=== PATIENT | female | born 1950 | race Caucasian/White ===

== ENCOUNTER → 2017-04-16 | Outpatient (CLI) | payer OTHER ==
[~2017-04-16] MED LIST: ALDACTONE PO; AMARYL PO; CAL PO; CALCIUM 500 + D1 TAB PO; CALCIUM1 TAB.CHEW PO; CALCIUM500 MG PO; CERTAGEN PO; CLINDAMYCIN HC300 MG PO; CORGARD PO; DIOVAN HCT 160-1 TAB PO; FISH OIL SOFTGE1 CA1 PO; GLIMEPIRIDE1 M1 PO; GLUCOTROL PO; IRON325 ( 651 PO; KCL; LACTULOSE20 GM/30 M PO; LANTUS100 U/ML INJ; LANTUS100 U/ML SUBQ; LASIX20 MG PO; METFORMIN HCL500 M1 PO; MULTIVITAMIN PO; NEXIUM PO; PRILOSEC PO; REQUIP1 MG PO; REQUIP2 MG PO; ROPINIROLE HCL2 MG PO; SERTRALINE HCL100 M1 PO; TRULICITY1.5 MG/0.5 SQ; TRULICITY1.5 MG/0.5 SUBQ; TYLENOL #3 PO; ZOCOR PO; ZOLOFT PO
--- NOTE | ~2017-04-16 | MY11 ---
[facility] A Service of [facility] & [facility] RADIOLOGY TEXT RESULTS PATIENT: QUIQUE LOWE LOCATION: [facility] : 51 UNIT #: [id number] AGE: [address]: Mayte Butterfield APRN SEX: F ORDER DR: [id number] [facility] [address] [place], [place] [address] [id number] O MR#: [id number] Acc #: [id number] NAME: QUIQUE LOWE. : 1950 SEX: F STUDY DATE/TIME: 04/16/2017 10:29 UNIT: [facility] ROOM: STUDY DESCRIPTION: MY Mammogram Screening Dig Stevie Attending Physician: Mayte Butterfield A.P.R.N. Referring Physician: Mayte Butterfield A.P.R.N. Ordering Physician: Mayte Butterfield A.P.R.N. Primary Care Physician: Mayte Butterfield A.P.R.N. MEDICAL IMAGING REPORT This report is preliminary unless electronic signature is present EXAM 1. Bilateral digital screening with CAD normal. 2. Bilateral breast tomosynthesis. HISTORY Routine screening. No current complaints. Family breast cancer in mother. COMPARISON STUDIES 04/13/2016 and 03/23/2015. FINDINGS MLO and CC digital views of each breast were obtained. The exam was reviewed FDA-approved CAD device. The breasts are almost entirely fatty replaced. There are no masses or abnormal calcifications. IMPRESSION No change and no evidence of malignancy. Patients over the age of 40 are entered into a reminder system with target due date for the next mammogram. A result letter will also be sent to the patient. BIRADS: 1 Negative Dictated by... Jhon Sheffield M.D. THIS IS AN ELECTRONICALLY VERIFIED REPORT [facility] A Service of [facility] & [facility] RADIOLOGY TEXT RESULTS PATIENT: QUIQUE LOWE LOCATION: [facility] : 51 UNIT #: [id number] AGE: [address]: Mayte Butterfield APRN SEX: F ORDER DR: Jhon Sheffield M.D. at 04/16/2017 1:22 PM Gm TD: 04/16/2017 13:00 JOB #: [id number] MEDICAL IMAGING REPORT Page 1 of 1 COPY
== END | disposition home or self-care (01) ==
LOC: CWCC 09:45
DX: Z12.31 Encounter for screening mammogram for malignant neoplasm of breast (principal); Z80.3 Family history of malignant neoplasm of breast
CPT/HCPCS: G0202

== ENCOUNTER → 2017-05-03 | Outpatient (CLI) | payer OTHER ==
--- NOTE | ~2017-05-03 | US6 ---
[facility] A Service of [facility] RADIOLOGY TEXT RESULTS PATIENT: QUIQUE LOWE LOCATION: [facility] : 51 UNIT #: [id number] AGE: [address]: Juanito Salas MD SEX: F ORDER DR: [id number] [facility] [address] [place], [place] [address] [id number] O MR#: [id number] Acc #: [id number] NAME: QUIQUE LOWE. : 1950 SEX: F STUDY DATE/TIME: 05/03/2017 8:52 UNIT: [facility] ROOM: STUDY DESCRIPTION: US Abdominal Limited Attending Physician: Juanito Salas M.D. Referring Physician: Juanito Salas M.D. Ordering Physician: Juanito Salas M.D. Primary Care Physician: Mayte Butterfield A.P.R.N. MEDICAL IMAGING REPORT This report is preliminary unless electronic signature is present EXAM Right upper quadrant abdominal ultrasound INDICATION Elevated liver enzyme levels at last physician visit. Anemia. PROCEDURE Lundberg-scale and Doppler imaging right upper quadrant of the abdomen. COMPARISON None. FINDINGS Visualized portions of the pancreas are unremarkable. Common duct measures 5 mm. Liver shows increased echotexture. No discrete liver mass seen on submitted images. Liver measures 14.9 cm. Right kidney measures 12.5 cm. No hydronephrosis. Previous cholecystectomy. IMPRESSION 1. Previous cholecystectomy. Common duct within normal limits. 2. Increased liver echotexture suggesting steatosis. Dictated by... Benedict Michael M.D. THIS IS AN ELECTRONICALLY VERIFIED REPORT Benedict Michael M.D. at 05/07/2017 7:10 AM RADHA/kae TD: 05/03/2017 10:24 JOB #: [id number] [facility] A Service of [facility] RADIOLOGY TEXT RESULTS PATIENT: QUIQUE LOWE LOCATION: [facility] : 51 UNIT #: [id number] AGE: [address]: Juanito Salas MD SEX: F ORDER DR: MEDICAL IMAGING REPORT Page 1 of 1 COPY
--- NOTE | ~2017-05-03 | NM19 ---
[facility] A Service of [facility] & [facility] RADIOLOGY TEXT RESULTS PATIENT: QUIQUE LOWE LOCATION: [place] : 51 UNIT #: [id number] AGE: [address]: Juanito Salas MD SEX: F ORDER DR: [id number] [facility] [address] [place], [place] [address] [id number] O MR#: [id number] Acc #: [id number] NAME: QUIQUE LOWE. : 1950 SEX: F STUDY DATE/TIME: 05/03/2017 9:41 UNIT: [facility] ROOM: STUDY DESCRIPTION: DE Gastric Emptying Study Attending Physician: Juanito Salas M.D. Referring Physician: Juanito Salas M.D. Ordering Physician: Juanito Salas M.D. Primary Care Physician: Mayte Butterfield A.P.R.N. MEDICAL IMAGING REPORT This report is preliminary unless electronic signature is present EXAM Radionuclide gastric emptying scan, 05/03/2017. HISTORY Dysphagia. Excessive bleeding from rectum. Vomiting, extra gassy, weight loss. Fall very easy, acid reflux. Duration 1 year, bleeding started December 04. Prior cholecystectomy 20 years ago. Diabetes. TECHNIQUE Following ingestion of 560 mcCi technetium 99m sulfur colloid admixed in scrambled eggs, anterior and posterior views of the abdomen obtained at 0, 60, 120, 240 minutes post ingestion. Region of interest drawn around stomach and time-activity curve constructed. Percent remaining at time intervals as follows: 60 minutes - 89%, 120 minutes - 87%, 240 minutes - 64% remaining. Percent empty at time intervals as follows: 60 minutes - 11%, 120 minutes - 13%, 240 minutes - 36%. IMPRESSION 1. Two hour solid phase gastric emptying is 13%. Normal is greater than 60%. Four hour solid phase gastric emptying is 36%. Normal is greater than 90%. Dictated by... Andres Wagoner M.D. THIS IS AN ELECTRONICALLY VERIFIED REPORT Andres Wagoner M.D. at 05/08/2017 10:14 AM ELGIN/lucien TD: 05/03/2017 19:10 JOB #: [id number] [facility] A Service of [facility] RADIOLOGY TEXT RESULTS PATIENT: QUIQUE LOWE LOCATION: [facility] : 51 UNIT #: [id number] AGE: [address]: Juanito Salas MD SEX: F ORDER DR: MEDICAL IMAGING REPORT Page 1 of 1 COPY
== END | disposition home or self-care (01) ==
LOC: CGUS 08:32
DX: K75.81 Nonalcoholic steatohepatitis (NASH) (principal); K30 Functional dyspepsia; K64.8 Other hemorrhoids; Z90.49 Acquired absence of other specified parts of digestive tract
CPT/HCPCS: 76705; 78264; 82947; A9541

== ENCOUNTER 2017-05-11 12:07 | Inpatient (IN) | payer OTHER ==
--- NOTE | ~2017-05-11 | HP ---
Unit #: [id number] #: [id number] Patient: QUIQUE LOWE [id number] [facility] [place], [place] [address] [id number] I MR#: [id number] NAME: QUIQUE LOWE. ROOM: 69376 Age: 67 Sex: F Admission Date: 05/11/2017 : 1950 Attending Physician: Delma Bell M.D. Primary Care Physician: Mayte Butterfield A.P.R.N. HISTORY AND PHYSICAL CHIEF COMPLAINT Altered mental status, hyperglycemia. HISTORY OF PRESENT ILLNESS The patient is a 67-year-old female with past medical history of diabetes, cirrhosis, hypertension, depression and restless leg syndrome who presented to the emergency department for evaluation of the above. History is obtained from chart review and discussion with the ER staff due to the patient's altered mental status. The patient has apparently had 2-3 days of confusion and weakness. She collapsed today. She was brought to the emergency department for further evaluation. In the emergency department initial temperature was 100, pulse 114, respirations 28, blood pressure 136/77. Oxygen saturation was 100% on 100% non-rebreather. The patient was restless, oriented to person only, not following commands but moving all extremities. She was ultimately intubated. A CT of the abdomen and pelvis was done and showed enlarged appendix that was unchanged compared to prior. Chest x-ray showed vascular congestion versus infiltrate. Lactic acid is 4.3. Ammonia level is 65. She was given 30 mL/kg of normal saline, as well as vancomycin and Rocephin, in the emergency department. She was also given 7 units of regular insulin and started on a propofol drip. She is being admitted to [facility] for evaluation and further treatment. PAST MEDICAL HISTORY 1. Admission to [facility] August 22 through August 24, 2015 for rectal bleeding. 2. Diabetes. 3. Cirrhosis secondary to nonalcoholic steatohepatitis, followed by Dr. Salas. 4. Hypertension. 5. Depression. 6. Restless leg syndrome. 7. Echocardiogram March 18, 2012 showed an ejection fraction of 60% with mild septal hypokinesis, mild concentric left ventricular hypertrophy. PAST SURGICAL HISTORY 1. Cholecystectomy. 2. Right ovarian surgery for benign tumor. 3. Bladder repair. 4. Carpal tunnel. 5. Hysterectomy. SOCIAL HISTORY Unit #: [id number] #: [id number] Patient: QUIQUE LOWE There is no tobacco or alcohol use per record review. FAMILY HISTORY Unobtainable. ALLERGIES Penicillin. HOME MEDICATIONS Home medications include insulin. Home medications will need to be reviewed and verified. REVIEW OF SYSTEMS Unobtainable due to altered mental status. PHYSICAL EXAMINATION VITAL SIGNS: Temperature is 100, pulse 114, respirations 28, blood pressure 136/77, oxygen saturation 100% on room air. GENERAL: The patient is a female who is currently sedated and intubated. HEENT: The head is atraumatic. Mucous membranes are moist. NECK: Supple. Trachea is midline. CARDIOVASCULAR: Regular rate and rhythm. RESPIRATORY: Lungs are relatively clear to auscultation bilaterally with no increased work of breathing. ABDOMEN: Soft, nontender with bowel sounds present in all 4 quadrants. EXTREMITIES: Extremities are nontender with no pedal edema. NEUROLOGIC: The patient is currently sedated. She was apparently oriented to person only and moving all extremities but not following commands on arrival per my discussion with ER staff. PSYCHIATRIC: Unable to assess. SKIN: Skin of examined areas is warm and dry. DIAGNOSTIC TESTS IMAGING: CT of the head is pending. CT of the abdomen and pelvis shows enlarged appendix, unchanged when compared to prior CT in August 22, 2015. Cirrhotic changes are noted. Minimal ascites is also noted. Chest x-ray shows vascular congestion versus infiltrate. The patient had an abdominal ultrasound May 03, 2017 that showed increased liver echotexture suggesting steatosis. She also had a gastric emptying study on May 03, 2017 that showed 2 hours solid gastric emptying 13%, four hours 36%. LABORATORY: Arterial blood gases show pH of 7.418, pCO2 of 34.1, pO2 of 121 on 2 liters. Troponin is less than 0.05. INR is 1.2. lactic acid 4.3. Ammonia 65. Urinalysis - Greater than 1,000 glucose. Comprehensive metabolic panel notable for sodium of 133, glucose 612, AST 48, alkaline phosphatase 190. Amylase and lipase are 22 and 67 respectively. CPK 62. Complete blood count notable for hemoglobin and hematocrit of 10.1 and 32.3 respectively. Platelets are 79. ASSESSMENT 1. The patient is a 67-year-old female with altered mental status. Unit #: [id number] #: [id number] Patient: QUIQUE LOWE 2. Hepatic encephalopathy with an initial ammonia level of 65. 3. Sepsis with initial lactic acid of 4.3. 4. Possible aspiration pneumonia. The patient received vancomycin and Rocephin in the emergency department. 5. Hyperosmolar hyperglycemia. The patient received 30 mL/kg of normal saline in the emergency department, as well as 7 units of regular insulin. 6. Normocytic anemia. The patient's hemoglobin was 9.2 on August 24, 2015; it is 10.1 today. 7. Thrombocytopenia. The patient's platelet count has been as low as 112 on August 24, 2015. It is 79 today. 8. Cirrhosis secondary to nonalcoholic steatohepatitis, followed by Dr. Salas. 9. Hypertension. 10. Depression. 11. Restless leg syndrome. PLAN 1. Admit to ICU. 2. NPO. 3. Normal saline at 150 mL an hour. 4. TSH, B12 and folate. 5. Follow up results of head CT. 6. Sepsis protocol with repeat lactic acid. 7. Blood cultures x2. 8. Status post culture and sensitivity. 9. Procalcitonin level. 10. Vancomycin, tobramycin, Levaquin, aztreonam IV pending further workup. 11. Insulin drip per non-DKA protocol to start now. 12. Hemoglobin A1C. 13. Protonix for GI prophylaxis since the patient will be in ICU. 14. SCDs for DVT prophylaxis. 15. Repeat labs in the morning, including ammonia, amylase and lipase. 16. Consult Dr. nKowles regarding hepatic encephalopathy and cirrhosis. NOTE: Thirty minutes critical care time spent in the care of this patient (3:15 to 3:45 p.m.). Dictated by John Bradley/mikhail TD: 05/11/2017 16:10 JOB #: [id number] Unit #: [id number] #: [id number] Patient: QUIQUE LOWE HISTORY AND PHYSICAL Page 1 of 1 X Delma Bell MD X HISTORY AND PHYSICAL
--- NOTE | ~2017-05-11 | EKG ---
PATIENT: QUIQUE LOWE UNIT #: [id number] Ventricular Rate: 82 BPM Atrial Rate: 82 BPM P-R Interval: 132 ms QRS Duration: 88 ms Q-T Interval: 412 ms QTC Calculation(Bezet): 481 ms P [place]: 71 degrees Calculated R [place]: -18 degrees Calculated T [place]: 60 degrees Diagnosis Line: Normal sinus rhythm Diagnosis Line: Normal ECG Diagnosis Line: When compared with ECG of 12-MAY-2017 14:37, Diagnosis Line: ST no longer depressed in Inferior leads Diagnosis Line: T wave inversion no longer evident in Inferior Diagnosis Line: leads Diagnosis Line: Confirmed by MADELAINE CUMMINS MD ([id number]) on 05/14/2017 Diagnosis Line: 5:39:13 AM INTERPRETING MD: MARIA G DE LA GARZA
--- NOTE | ~2017-05-11 | CT71 ---
[facility] A Service of [facility] RADIOLOGY TEXT RESULTS PATIENT: QUIQUE LOWE LOCATION: [address] : [birth year] UNIT #: [id number] AGE: [address]: Pratik Hart MD SEX: F ORDER DR: [id number] [facility] [address]. [place], [place] [address] [id number] I MR#: [id number] Acc #: [id number] NAME: QUIQUE LOWE. : 1950 SEX: F STUDY DATE/TIME: 05/11/2017 12:57 UNIT: [facility] ROOM: [facility] STUDY DESCRIPTION: CT Head Wo Contrast Attending Physician: Delma Bell M.D. Ordering Physician: Max Angeles M.D. Primary Care Physician: Mayte Butterfield A.P.R.N. MEDICAL IMAGING REPORT This report is preliminary unless electronic signature is present EXAM CT of the head without contrast; 05/11/2017. HISTORY 67-year-old female with seizure and altered mental status today. Collapsed at home today. COMPARISON CT head, 10/05/2011. TECHNIQUE Routine unenhanced axial images performed through the brain. This CT exam was performed with one or more of the following radiation dose reduction techniques: automatic exposure control, adjustment of mA and/or kV according to patient size, and iterative reconstruction. FINDINGS No hemorrhage, acute infarction, mass lesion, or abnormal extraaxial fluid collection. No midline shift or focal mass effect. Ventricular system is normal in size and configuration. No acute bony abnormality. Mucosal thickening bilateral maxillary sinuses. Visualized mastoid air cells are clear. Incidental note of benign dystrophic calcifications in the right basal ganglia and bilateral cerebellar hemispheres. IMPRESSION No acute intracranial abnormality. Mucosal thickening bilateral maxillary sinuses. Dictated by... Bry Loo M.D. THIS IS AN ELECTRONICALLY VERIFIED REPORT [facility] A Service [facility] RADIOLOGY TEXT RESULTS PATIENT: QUIQUE LOWE LOCATION: [address] : [birth year] UNIT #: [id number] AGE: [address]: Pratik Hart MD SEX: F ORDER DR: Bry Loo M.D. at 05/12/2017 6:12 PM NIK/lucien TD: 05/11/2017 18:43 JOB #: [id number] MEDICAL IMAGING REPORT Page 1 of 1 COPY
--- NOTE | ~2017-05-11 | CO ---
Unit #: [id number] #: [id number] Patient: QUIQUE LOWE [id number] [address] [place], [place] [address] [id number] I MR#: [id number] NAME: QUIQUE LOWE. ROOM: [facility] Age: 67 Sex: F Admission Date: 05/11/2017 : 1950 Attending Physician: Pratik Hart M.D. Primary Care Physician: Mayte Butterfield A.P.R.N. Consultation Date: 05/12/2017 CONSULTATION REPORT REASON FOR CONSULTATION Hepatic encephalopathy. HISTORY OF PRESENTING ILLNESS Ms. Lowe is a 67-year-old lady, presently in respiratory failure, and on a ventilator, unable to give any history. History was obtained from chart, review as well as talking to her . He was on the bedside. The patient has been having confusion going on started about a week ago, got worsen, and yesterday she blacked out and brought her to the hospital. Here she has not had any similar problems in the past. She was recently told she may have liver cirrhosis however did not really have a warned diagnosis in the past. She has seen Dr. Salas for that. She also has had multiple scopes in different places apparently for bleeding and was told that she has hemorrhoids and had banding of hemorrhoids several times in the past. SOCIAL HISTORY No alcohol. She has never been diagnosed with hepatitis. PAST MEDICAL HISTORY Significant for diabetes mellitus, obesity, and depression. She is status post cholecystectomy and hysterectomy. SOCIAL HISTORY Nonsmoker and nonalcoholic. FAMILY HISTORY Cannot be obtained. ALLERGIES Penicillin. REVIEW OF SYSTEMS Unable to obtain. MEDICATIONS Currently include vancomycin, Azactam, Nebcin, Novolin, and Levophed. PHYSICAL EXAMINATION GENERAL: Intubated, non-responsive. Unit #: [id number] #: [id number] Patient: QUIQUE LOWE HEENT: Pupils are reactive. Sclerae anicteric. Oral mucosa moist. NECK: No JVD. No lymphadenopathy. CHEST: Few scattered rhonchi. CARDIOVASCULAR: Regular rate rhythm. No murmurs. ABDOMEN: Soft. No clear shifting dullness or organomegaly. EXTREMITIES: Without clubbing, cyanosis, or edema. NEUROLOGIC: Deferred. SKIN: Warm and dry. LABORATORY DATA Ammonia level on arrival was 65. Lactic acid was 4.5. Amylase and lipase are normal. Renal function was normal. Coags are normal. CBC shows hemoglobin of 9.9, white count of 13.3, and platelet count of 93. DIAGNOSTIC STUDIES CT scan findings are consistent with cirrhosis. Head CT was normal. ASSESSMENT AND PLAN 1. The patient with unconsciousness, mental status changes, elevated ammonia level, started most likely as hepatic encephalopathy and is currently being treated for sepsis also. I will her put in an NG tube and started with lactulose through that. We will continue with supportive care and antibiotics. Further recommendations to follow. 2. Sepsis on multiple strong antibiotics. 3. WALL related liver disease. 4. Diabetes mellitus. Thank you Dr. Bell for this interesting consult. We will follow along. Dictated by... Dilan Knowles M.D. XIN/sari TD: 05/12/2017 11:57 JOB #: [id number] CONSULTATION REPORT Page 1 of 1 X Dilan Knowles MD CONSULTATION REPORT
--- NOTE | ~2017-05-11 | CR72 ---
[facility] A Service of [facility] & [facility] RADIOLOGY TEXT RESULTS PATIENT: QUIQUE LOWE LOCATION: [address] : [birth year] UNIT #: [id number] AGE: [address]: Delma Bell MD SEX: F ORDER DR: [id number] [facility] [address] [place], [place] [address] [id number] I MR#: [id number] Acc #: [id number] NAME: QUIQUE LOWE. : 1950 SEX: F STUDY DATE/TIME: 05/11/2017 14:11 UNIT: [facility] ROOM: 94798 STUDY DESCRIPTION: CR Chest Single View Portable Attending Physician: Delma Bell M.D. Ordering Physician: Max Angeles M.D. Primary Care Physician: Mayte Butterfield A.P.R.N. MEDICAL IMAGING REPORT This report is preliminary unless electronic signature is present EXAM Portable chest, 05/11/2017 HISTORY Respiratory failure. Intubated today. FINDINGS The cardiac and mediastinal structures are stable compared with earlier today at 12:43 p.m. Endotracheal tube has been inserted with the tip approximately 4.0 cm above the adriana. Poor inspiratory result with minimal atelectasis or infiltrate left lower lobe medially. Lungs are otherwise clear. Pulmonary vascular congestion has resolved. There are no pleural effusions. Dictated by... Jourdan Fuchs M.D. THIS IS AN ELECTRONICALLY VERIFIED REPORT Jourdan Fuchs M.D. at 05/12/2017 6:29 AM VIRA/mark TD: 05/11/2017 16:34 JOB #: [id number] MEDICAL IMAGING REPORT Page 1 of 1 COPY
--- NOTE | ~2017-05-11 | CT4 ---
[facility] A Service of [facility] RADIOLOGY TEXT RESULTS PATIENT: QUIQUE LOWE LOCATION: [facility]3-17 : 52 UNIT #: [id number] AGE: [address]: Delma Bell MD SEX: F ORDER DR: [id number] [facility] [address] [place], [place] [address] [id number] E MR#: [id number] Acc #: [id number] NAME: QUIQUE LOWE. : 1950 SEX: F STUDY DATE/TIME: 05/11/2017 13:09 UNIT: TIM ROOM: STUDY DESCRIPTION: CT Abd and Pelv Wo Cont Attending Physician: Max Angeles M.D. Ordering Physician: Max Angeles M.D. Primary Care Physician: Mayte Butterfield A.P.R.N. MEDICAL IMAGING REPORT This report is preliminary unless electronic signature is present EXAM CT scan of the abdomen and pelvis without contrast, 05/11/2017 HISTORY Abdomen pain on physical examination today status post seizure with altered mental status. Patient collapsed at home today. Hypertension and diabetes. Abnormally elevated liver enzymes. TECHNIQUE Spiral CT was performed through the abdomen and pelvis without oral or intravenous contrast administration as per clinician request. This CT exam was performed with one or more of the following radiation dose reduction techniques: automatic exposure control, adjustment of mA and/or kV according to patient size, and iterative reconstruction. FINDINGS The exam is limited by the lack of oral and intravenous contrast. Liver demonstrates surface nodularity and prominence of the caudate lobe characteristic of cirrhosis. Recanalization of the umbilical vein is noted as well as periesophageal varices. There is a small amount of ascites in the upper abdomen. The spleen is enlarged measuring 13.7 cm in greatest diameter. The pancreas is normal. The gallbladder is surgically absent. The adrenal glands and kidneys are normal. PELVIS: The gut, mesenteric and dequan structures are normal. There is no free fluid in the abdomen or pelvis. The appendix is enlarged measuring 1.3 cm in diameter but this was present on the previous examination dated 08/22/2015. No inflammatory changes are seen surrounding the appendix. Correlate clinically for possible appendicitis. Findings called to the ordering clinician at 01:45 p.m. on 05/11/2017. Images of the lung bases demonstrate bibasilar atelectasis. [facility] A Service of [facility] RADIOLOGY TEXT RESULTS PATIENT: QUIQUE LOWE LOCATION: [address]17 : [birth year] UNIT #: [id number] AGE: [address]: Delma Bell MD SEX: F ORDER DR: IMPRESSION 1. The examination is limited by the lack of oral and intravenous contrast. The exam is also limited by patient motion with resulting artifact. 2. Diffuse enlargement of the appendix measuring 1.3 cm in diameter. This is not significantly changed compared with previous examination dated 08/22/2015. No inflammatory changes are seen surrounding the appendix. Correlate clinically to exclude appendicitis. 3. Hepatic cirrhosis. Recanalization of the umbilical vein. 4. Splenomegaly. 5. Minimal ascites in the upper abdomen. STAT * RESULT Dictated by... Jourdan Fuchs M.D. THIS IS AN ELECTRONICALLY VERIFIED REPORT Jourdan Fuchs M.D. at 05/12/2017 6:23 AM VIRA/mark TD: 05/11/2017 13:47 JOB #: [id number] MEDICAL IMAGING REPORT Page 1 of 1 COPY
--- NOTE | ~2017-05-11 | CO ---
Unit #: [id number] #: [id number] Patient: QUIQUE LOWE [id number] [address] [place], [place] [address] [id number] I MR#: [id number] NAME: QUIQUE LOWE. ROOM: [facility] Age: 67 Sex: F Admission Date: 05/11/2017 : 1950 Attending Physician: Pratik Hart M.D. Primary Care Physician: Mayte Butterfield A.P.R.N. Consultation Date: 05/11/2017 CONSULTATION REPORT REASON FOR CONSULTATION Respiratory failure. CHIEF COMPLAINT AND HISTORY OF PRESENT ILLNESS A 67-year-old female with past medical history of diabetes, cirrhosis, hypertension, depression, restless leg syndrome. Presented with the complaint of altered mental status. Was found to have elevated blood sugar. The patient had confusion and weakness 2-3 days ago, collapsed. She was restless, oriented to person only and was intubated. CT of the abdomen and pelvis showed enlarged appendix. I am seeing her at the bedside, currently intubated, sedated. REVIEW OF SYSTEMS Unobtainable. PAST MEDICAL HISTORY Diabetes, cirrhosis, hypertension, depression, restless leg syndrome. SURGICAL HISTORY Cholecystectomy, right ovarian surgery, bladder repair, carpal tunnel syndrome, hysterectomy. SOCIAL HISTORY Nonsmoker, no alcohol, no drug abuse. ALLERGIES Penicillin. HOME MEDICATIONS Insulin. Rest of the home medications reviewed. PHYSICAL EXAMINATION VITAL SIGNS: Temperature 98, pulse 100, respirations 16, blood pressure 120/70. NEUROLOGIC: Sedated, intubated. CVS: S1, S2. RESPIRATORY: Bilateral air entry. Bilateral mild rhonchi. GI: Nontender. Soft. Bowel sounds positive. EXTREMITIES: No edema. SKIN: No rashes, no ulcer. LYMPHATIC: No lymphadenopathy. DIAGNOSTIC STUDIES Labs and imaging have been reviewed. Unit #: [id number] #: [id number] Patient: QUIQUE LOWE ASSESSMENT 1. Acute hypoxic respiratory failure. 2. Altered mental status. 3. Hepatic encephalopathy. 4. Elevated ammonia level. 5. Sepsis, present on admission. 6. Possible aspiration. 7. Hyperosmolar hyperglycemia. 8. Normocytic anemia. 9. Cirrhosis. 10. Hypertension. 11. Critically ill patient. PLAN Plan is to continue ventilator support. Continue IV antibiotics and IV fluids. GI and DVT prophylaxis. Consult gastroenterology. Continue non-DKA protocol insulin drip. Patient will be closely monitored. Please see orders for detailed plan. Thank you very much for this consultation. Dictated by... John Clarke/mikhail TD: 05/12/2017 13:13 JOB #: [id number] CONSULTATION REPORT Page 1 of 1 X Casey Cortes MD X CONSULTATION REPORT
--- NOTE | ~2017-05-11 | CR7 ---
[facility] A Service of [facility] & [facility] RADIOLOGY TEXT RESULTS PATIENT: QUIQUE LOWE LOCATION: [address] : [birth year] UNIT #: [id number] AGE: [address]: Pratik Hart MD SEX: F ORDER DR: [id number] [facility] [address] [place], [place] [address] [id number] I MR#: [id number] Acc #: [id number] NAME: QUIQUE LOWE. : 1950 SEX: F STUDY DATE/TIME: 05/12/2017 9:45 UNIT: [facility] ROOM: [facility] STUDY DESCRIPTION: CR Abdomen Single AP View Attending Physician: Pratik Hart M.D. Ordering Physician: Pratik Hart M.D. Primary Care Physician: Mayte Butterfield A.P.R.N. MEDICAL IMAGING REPORT This report is preliminary unless electronic signature is present EXAM Portable abdomen, 05/12/2017 HISTORY Post invasive procedure. Nasogastric tube placement today. Respiratory failure and feeding difficulty. FINDINGS The tip of the nasogastric tube is in the region of the distal stomach. Dictated by... Jourdan Fuchs M.D. THIS IS AN ELECTRONICALLY VERIFIED REPORT Jourdan Fuchs M.D. at 05/13/2017 8:06 AM VIRA/mark TD: 05/12/2017 10:28 JOB #: [id number] MEDICAL IMAGING REPORT Page 1 of 1 COPY
--- NOTE | ~2017-05-11 | CR72 ---
[facility] A Service of [facility] RADIOLOGY TEXT RESULTS PATIENT: QUIQUE LOWE LOCATION: [place] [id number] : [birth year] UNIT #: [id number] AGE: [address]: Pratik Hart MD SEX: F ORDER DR: [id number] [facility] [address] [place], [place] [address] [id number] I MR#: [id number] Acc #: [id number] NAME: QUIQUE LOWE. : 1950 SEX: F STUDY DATE/TIME: 05/13/2017 2:41 UNIT: [facility] ROOM: [facility] STUDY DESCRIPTION: CR Chest Single View Portable Attending Physician: Pratik Hart M.D. Ordering Physician: Pratik Hart M.D. Primary Care Physician: Mayte Butterfield A.P.R.N. MEDICAL IMAGING REPORT This report is preliminary unless electronic signature is present EXAM Portable chest INDICATION Respiratory failure. PROCEDURE Frontal view chest. COMPARISON 05/12/2017 FINDINGS Heart size unchanged. Persistent left basilar opacity and/or fluid. ET tube not appreciably changed. No pneumothorax. IMPRESSION Stable. Dictated by... Benedict Michael M.D. THIS IS AN ELECTRONICALLY VERIFIED REPORT Benedict Michael M.D. at 05/13/2017 10:00 PM RADHA/naldo TD: 05/13/2017 03:17 JOB #: [id number] MEDICAL IMAGING REPORT Page 1 of 1 COPY
--- NOTE | ~2017-05-11 | DS ---
Unit #: [id number] #: [id number] Patient: QUIQUE LOWE [id number] [address] [place], [place] [address] [id number] I MR#: [id number] NAME: QUIQUE LOWE. ROOM: 305 Age: 67 Sex: F Admission Date: 05/11/2017 : 1950 Discharge Date: 05/17/2017 Attending Physician: Pratik Hart M.D. Primary Care Physician: Mayte Butterfield A.P.R.N. DISCHARGE SUMMARY REASON FOR ADMISSION Hepatic encephalopathy, altered mental status, hyperglycemia. HISTORY OF PRESENT ILLNESS/HOSPITAL COURSE The patient is a 67-year-old female with underlying history of diabetes, cirrhosis, hypertension, depression, restless leg syndrome who presented secondary to confusion, altered mental status. Patient was ultimately intubated while in the emergency room. Chest x-ray showed congestion versus infiltrate. Lactic acid was elevated at 4.3. Please refer to H and P for complete details. The patient was placed in the ICU. Consultation was placed to heating and ventilating worker, Dr. Cortes and matilda, who followed the patient through her hospital course. The patient was placed on IV antibiotics secondary to concern for bacterial peritonitis. Patient was gradually extubated and consultation was subsequently placed to GI services. Dr. Knowles and associates saw and evaluated the patient. Patient showed improvement in her overall mental status, function, as well as, respiratory status. After extubation, she received Aldactone as well as lactulose. She was transitioned to med/surg floor. At the present time, PT and OT services have evaluated patient, recommended that she is stable to go home with home health. Overall, the patient's long-term prognosis is guarded at best. She unfortunately has a longstanding history of nonalcoholic cirrhosis. FINAL DISCHARGE DIAGNOSES 1. Hepatic encephalopathy. 2. Nonalcoholic steatohepatitis. 3. Diabetes. 4. Hypertension. 5. Depression. 6. Restless leg syndrome. 7. Sepsis criteria present on admission. DISCHARGE MEDICATIONS 1. Trulicity subcutaneous daily. 2. Lantus 10 units subcutaneous nightly. Unit #: [id number] #: [id number] Patient: QUIQUE LOWE 3. Aldactone 50 mg p.o. daily. 4. Lasix 20 mg p.o. daily. 5. Lactulose 30 mL p.o. q.8 hours. 6. Omeprazole 40 mg p.o. daily. 7. Glimepiride 1 mg p.o. daily. DISCHARGE CONDITION Stable. DISCHARGE DISPOSITION Home. Dictated by... Jhon Siu TD: 05/21/2017 12:33 JOB #: [id number] DISCHARGE SUMMARY Page 1 of 1 X Maribeth Quiroga MD X DISCHARGE SUMMARY
--- NOTE | ~2017-05-11 | CR72 ---
[facility] A Service of [facility] RADIOLOGY TEXT RESULTS PATIENT: QUIQUE LOWE LOCATION: [facility]3-17 : [birth year] UNIT #: [id number] AGE: [address]: Delma Bell MD SEX: F ORDER DR: [id number] [facility] [address] [place], [place] [address] [id number] E MR#: [id number] Acc #: [id number] NAME: QUIQUE LOWE. : 1950 SEX: F STUDY DATE/TIME: 05/11/2017 12:43 UNIT: TIM ROOM: STUDY DESCRIPTION: CR Chest Single View Portable Attending Physician: Max Angeles M.D. Ordering Physician: Max Angeles M.D. Primary Care Physician: Mayte Butterfield A.P.R.N. MEDICAL IMAGING REPORT This report is preliminary unless electronic signature is present EXAM Portable chest, 05/11/2017 HISTORY Sepsis, chest congestion today. Patient incoherent. FINDINGS The heart is normal in size. There is poor inspiratory result, and there is mild pulmonary vascular congestion. Poor inspiratory result with bibasilar atelectasis. There are no pleural effusions. IMPRESSION Pulmonary vascular congestion. Dictated by... Jourdan Fuchs M.D. THIS IS AN ELECTRONICALLY VERIFIED REPORT Jourdan Fuchs M.D. at 05/12/2017 6:27 AM VIRA/chao TD: 05/11/2017 15:45 JOB #: [id number] MEDICAL IMAGING REPORT Page 1 of 1 COPY
--- NOTE | ~2017-05-11 | EKG ---
PATIENT: QUIQUE LOWE UNIT #: [id number] Ventricular Rate: 79 BPM Atrial Rate: 79 BPM P-R Interval: 144 ms QRS Duration: 80 ms Q-T Interval: 438 ms QTC Calculation(Bezet): 502 ms P [place]: 63 degrees Calculated R [place]: -8 degrees Calculated T [place]: -66 degrees Diagnosis Line: Normal sinus rhythm Diagnosis Line: Non Specific ST Changes- Abnormality Diagnosis Line: Borderline ECG Diagnosis Line: When compared with ECG of 11-MAY-2017 14:15, Diagnosis Line: (unconfirmed) Diagnosis Line: ST now depressed in Inferior leads Diagnosis Line: T wave inversion now evident in Inferior leads Diagnosis Line: Confirmed by VANE NOVA MD ([id number]) on Diagnosis Line: 05/12/2017 10:53:50 PM INTERPRETING MD: BEATRICE
--- NOTE | ~2017-05-11 | EKG ---
PATIENT: QUIQUE LOWE UNIT #: [id number] Ventricular Rate: 99 BPM Atrial Rate: 99 BPM P-R Interval: 142 ms QRS Duration: 86 ms Q-T Interval: 380 ms QTC Calculation(Bezet): 487 ms P [place]: 70 degrees Calculated R [place]: -12 degrees Calculated T [place]: 48 degrees Diagnosis Line: Normal sinus rhythm Diagnosis Line: Minimal voltage criteria for LVH, may be normal Diagnosis Line: variant Diagnosis Line: Borderline ECG Diagnosis Line: No previous ECGs available Diagnosis Line: Confirmed by VANE NOVA MD ([id number]) on Diagnosis Line: 05/12/2017 10:37:27 PM INTERPRETING MD: BEATRICE
--- NOTE | ~2017-05-11 | CR72 ---
[facility] A Service of [facility] & [facility] RADIOLOGY TEXT RESULTS PATIENT: QUIQUE LOWE LOCATION: [place] [address] : [birth year] UNIT #: [id number] AGE: [address]: Pratik Hart MD SEX: F ORDER DR: [id number] [facility] [address] [place], [place] [address] [id number] I MR#: [id number] Acc #: [id number] NAME: QUIQUE LOWE. : 1950 SEX: F STUDY DATE/TIME: 05/12/2017 4:41 UNIT: [facility] ROOM: [facility] STUDY DESCRIPTION: CR Chest Single View Portable Attending Physician: Pratik Hart M.D. Ordering Physician: Delma Bell M.D. Primary Care Physician: Mayte Butterfield A.P.R.N. MEDICAL IMAGING REPORT This report is preliminary unless electronic signature is present EXAM Portable chest INDICATION Pneumonia follow up. PROCEDURE Frontal view chest. COMPARISON 05/11/2017 FINDINGS Heart size unchanged. No new dense consolidation. ET tube is stable. IMPRESSION Stable. Dictated by... Benedict Michael M.D. THIS IS AN ELECTRONICALLY VERIFIED REPORT Benedict Michael M.D. at 05/12/2017 10:24 PM RADHA/kaylin TD: 05/12/2017 09:09 JOB #: [id number] MEDICAL IMAGING REPORT Page 1 of 1 COPY
[~2017-05-11 12:07] MED LIST changes: -ALDACTONE PO; -GLIMEPIRIDE1 M1 PO; -KCL; -LACTULOSE20 GM/30 M PO; -LANTUS100 U/ML INJ; -LASIX20 MG PO; -PRILOSEC PO; -TRULICITY1.5 MG/0.5 SUBQ
[2017-05-11 12:42] LABS: ARTERIAL BLD GAS O2 SATURATION 97.7 % (90.0-100.0); ARTERIAL BLOOD GAS CARBOXY HB 0.9 %sat (0.0-9.0); ARTERIAL BLOOD GAS MET HB 0.7 %sat (0.0-2.0); ARTERIAL BLOOD GAS PCO2 34.1 mmHg (35.0-45.0); ARTERIAL BLOOD GAS pH 7.418 (7.350-7.450)
[2017-05-11 12:43] LABS: ARTERIAL BLOOD GAS ART SITE LEFT RADIAL; ARTERIAL BLOOD GAS DELIVERY NASAL CANNULA; ARTERIAL DRAW? YES
[2017-05-11 12:53] LABS: URINE SOURCE CLEAN CATCH
[2017-05-11 12:58] LABS: POC - CKMB 1.4 ng/mL (0.0-7.9); POC - TROPONIN <0.05 ng/mL (<=0.05)
[2017-05-11 13:04] LABS: URINE APPEARANCE CLEAR; URINE BILIRUBIN NEG (NEG); URINE BLOOD NEG (NEG); URINE COLOR YELLOW; URINE GLUCOSE >1000 MG/DL (NEG); URINE KETONE NEG (NEG); URINE LEUKOCYTE ESTERASE NEG (NEG); URINE NITRATE NEG (NEG); URINE PH 5.5 (5-8); URINE PROTEIN NEG (NEG); URINE SPECIFIC GRAVITY 1.033 (1.003-1.035); URINE UROBILINOGEN 0.2 MG/DL (NEG)
[2017-05-11 13:12] LABS: INR 1.2; PARTIAL THROMBOPLASTIN TIME 25.4 SECONDS (23.5-31.3); PROTHROMBIN TIME (PATIENT) 12.6 SECONDS (10.0-11.7)
[2017-05-11 13:22] LABS: BASOPHIL% 0.4 % (0-2.5); EOSINOPHIL# 0.2 X10e3 (0-0.7); EOSINOPHIL% 2.1 % (0.0-7.0); HEMATOCRIT 32.3 % (35.0-45.0); HEMOGLOBIN 10.1 gm/dL (12.0-16.0); LYMPHOCYTE% 14.2 % (17.0-45.0); MEAN CELL VOLUME 84.8 FL (83-96); MEAN CORPUSCULAR HEMOGLOBIN 26.6 PG (28-34); MEAN CORPUSCULAR HGB CONC 31.4 g/dL (30-36); MEAN PLATELET VOLUME 10.1 FL (6.5-11.5); MONOCYTE# 0.6 X10e3 (0-1.0); MONOCYTE% 8.2 % (3.0-12.0); NEUTROPHIL# 5.3 X10e3 (1.5-7.1); NEUTROPHIL% 75.1 % (40-75); RED BLOOD COUNT 3.82 X10e (3.90-5.30); RED CELL DISTRIBUTION WIDTH 22.9 % (11.0-15.5); WHITE BLOOD COUNT 7.1 X10e3 (4.0-10.5)
[2017-05-11 13:31] LABS: CULTURE INDICATED? NO
[2017-05-11 13:35] LABS: ALBUMIN SERUM 3.5 g/dL (3.5-5.0); BILIRUBIN, DIRECT 0.4 mg/dL (0.0-0.2); BILIRUBIN,INDIRECT 0.9 mg/dL (0.0-0.9); BILIRUBIN,TOTAL 1.3 mg/dL (0.2-2.0); BUN/CREATININE RATIO 21.11; CALCIUM SERUM 9.2 mg/dL (8.4-10.2); CREATININE SERUM 0.9 mg/dL (0.6-1.4); GLOM FILT RATE Estimated 66.7 mL/min (>60); POTASSIUM 3.9 mmol/L (3.5-5.1); PROTEIN TOTAL SERUM 7.7 g/dL (6.0-8.3)
[2017-05-11 13:55] LABS: DIFF IND YES; PLATELET COUNT 79 X10e3 (140-420)
[2017-05-11 14:01] LABS: TOXIC GRANULATION SL
[2017-05-11 14:04] LABS: PLATELET ESTIMATE DECREASED (NORMAL)
[2017-05-11 14:05] LABS: HYPOCHROMIA SL
[2017-05-11] MEDS ORDERED: TRULICITY1.5 MG/0.5 SUBQ (15:37)
[2017-05-11] MEDS ORDERED: PRILOSEC PO (15:37)
[2017-05-11] MEDS ORDERED: GLIMEPIRIDE1 M1 PO (15:38)
[2017-05-11] MEDS ORDERED: KCL (15:38)
[2017-05-11] MEDS ORDERED: LANTUS100 U/ML INJ (15:39)
[2017-05-11 16:55] LABS: FOLATE (FOLIC ACID) >23.3 ng/mL (>5.8)
[2017-05-11 16:59] LABS: PROCALCITONIN 0.24 NG/ML
[2017-05-11 20:20] LABS: %MB 2.5 % (0.0-4.0); MB 2.6 ng/ml
[2017-05-12 01:53] LABS: BASOPHIL% 0.4 % (0-2.5); EOSINOPHIL# 0.5 X10e3 (0-0.7); EOSINOPHIL% 4.1 % (0.0-7.0); HEMATOCRIT 31.2 % (35.0-45.0); HEMOGLOBIN 9.9 gm/dL (12.0-16.0); LYMPHOCYTE# 1.8 X10e3 (1.0-3.5); LYMPHOCYTE% 13.6 % (17.0-45.0); MEAN CELL VOLUME 82.4 FL (83-96); MEAN CORPUSCULAR HEMOGLOBIN 26.1 PG (28-34); MEAN CORPUSCULAR HGB CONC 31.7 g/dL (30-36); MEAN PLATELET VOLUME 10.5 FL (6.5-11.5); MONOCYTE# 1.2 X10e3 (0-1.0); MONOCYTE% 8.7 % (3.0-12.0); NEUTROPHIL# 9.7 X10e3 (1.5-7.1); NEUTROPHIL% 73.2 % (40-75); PLATELET COUNT 93 X10e3 (140-420); RED BLOOD COUNT 3.79 X10e (3.90-5.30); WHITE BLOOD COUNT 13.3 X10e3 (4.0-10.5)
[2017-05-12 01:54] LABS: DIFF IND NO
[2017-05-12 02:31] LABS: %MB 1.9 % (0.0-4.0); MB 3.6 ng/ml
[2017-05-12 02:35] LABS: ALBUMIN SERUM 3.3 g/dL (3.5-5.0); BILIRUBIN,TOTAL 0.6 mg/dL (0.2-2.0); BUN/CREATININE RATIO 22.85; CALCIUM SERUM 8.4 mg/dL (8.4-10.2); CREATININE SERUM 0.7 mg/dL (0.6-1.4); GLOM FILT RATE Estimated 90.3 mL/min (>60); POTASSIUM 3.3 mmol/L (3.5-5.1); PROTEIN TOTAL SERUM 7.1 g/dL (6.0-8.3)
[2017-05-12 03:54] LABS: ARTERIAL BLD GAS O2 SATURATION 98.2 % (90.0-100.0); ARTERIAL BLOOD GAS CARBOXY HB 0.7 %sat (0.0-9.0); ARTERIAL BLOOD GAS HCO3 20.3 mmol/L; ARTERIAL BLOOD GAS PCO2 32.1 mmHg (35.0-45.0); ARTERIAL BLOOD GAS pH 7.409 (7.350-7.450)
[2017-05-12 03:57] LABS: ARTERIAL BLOOD GAS ALLEN TEST NORMAL; ARTERIAL BLOOD GAS ART SITE RIGHT RADIAL; ARTERIAL BLOOD GAS DELIVERY VENT; ARTERIAL BLOOD GAS VENT MODE A/C; ARTERIAL DRAW? YES
[2017-05-13 04:16] LABS: ARTERIAL BLD GAS O2 SATURATION 98.2 % (90.0-100.0); ARTERIAL BLOOD GAS CARBOXY HB 0.7 %sat (0.0-9.0); ARTERIAL BLOOD GAS HCO3 17.7 mmol/L; ARTERIAL BLOOD GAS MET HB 0.8 %sat (0.0-2.0); ARTERIAL BLOOD GAS PCO2 30.4 mmHg (35.0-45.0); ARTERIAL BLOOD GAS pH 7.374 (7.350-7.450)
[2017-05-13 04:17] LABS: ARTERIAL BLOOD GAS ALLEN TEST NORMAL; ARTERIAL BLOOD GAS ART SITE LEFT RADIAL; ARTERIAL BLOOD GAS DELIVERY VENT; ARTERIAL BLOOD GAS VENT MODE AC; ARTERIAL DRAW? YES
[2017-05-13 06:15] LABS: BASOPHIL% 0.5 % (0-2.5); EOSINOPHIL# 0.3 X10e3 (0-0.7); HEMATOCRIT 25.8 % (35.0-45.0); HEMOGLOBIN 8.4 gm/dL (12.0-16.0); LYMPHOCYTE# 0.8 X10e3 (1.0-3.5); LYMPHOCYTE% 14.1 % (17.0-45.0); MEAN CORPUSCULAR HEMOGLOBIN 27.8 PG (28-34); MEAN CORPUSCULAR HGB CONC 32.5 g/dL (30-36); MEAN PLATELET VOLUME 9.8 FL (6.5-11.5); MONOCYTE# 0.5 X10e3 (0-1.0); MONOCYTE% 8.9 % (3.0-12.0); NEUTROPHIL# 4.3 X10e3 (1.5-7.1); NEUTROPHIL% 71.5 % (40-75); RED BLOOD COUNT 3.02 X10e (3.90-5.30); RED CELL DISTRIBUTION WIDTH 23.7 % (11.0-15.5)
[2017-05-13 06:29] LABS: MEAN CELL VOLUME 85.5 FL (83-96); PLATELET COUNT 59 X10e3 (140-420)
[2017-05-13 06:31] LABS: DIFF IND NO
[2017-05-13 06:43] LABS: ALBUMIN SERUM 2.7 g/dL (3.5-5.0); BUN/CREATININE RATIO 21.66; CREATININE SERUM 0.6 mg/dL (0.6-1.4); MAGNESIUM 1.5 mg/dL (1.6-3.0); POTASSIUM 3.6 mmol/L (3.5-5.1)
[2017-05-13 07:04] LABS: %MB 1.9 % (0.0-4.0); MB 2.9 ng/ml
[2017-05-14 06:02] LABS: BASOPHIL% 0.7 % (0-2.5); EOSINOPHIL# 0.3 X10e3 (0-0.7); EOSINOPHIL% 6.4 % (0.0-7.0); HEMATOCRIT 28.7 % (35.0-45.0); LYMPHOCYTE# 1.1 X10e3 (1.0-3.5); LYMPHOCYTE% 22.8 % (17.0-45.0); MEAN CELL VOLUME 85.1 FL (83-96); MEAN CORPUSCULAR HEMOGLOBIN 26.6 PG (28-34); MEAN CORPUSCULAR HGB CONC 31.3 g/dL (30-36); MEAN PLATELET VOLUME 10.7 FL (6.5-11.5); MONOCYTE# 0.6 X10e3 (0-1.0); MONOCYTE% 11.2 % (3.0-12.0); NEUTROPHIL# 2.9 X10e3 (1.5-7.1); NEUTROPHIL% 58.9 % (40-75); RED BLOOD COUNT 3.37 X10e (3.90-5.30); RED CELL DISTRIBUTION WIDTH 23.7 % (11.0-15.5); WHITE BLOOD COUNT 4.9 X10e3 (4.0-10.5)
[2017-05-14 06:04] LABS: PLATELET COUNT 77 X10e3 (140-420)
[2017-05-14 06:05] LABS: DIFF IND NO
[2017-05-14 07:09] LABS: ALBUMIN SERUM 2.6 g/dL (3.5-5.0); BILIRUBIN,TOTAL 1.2 mg/dL (0.2-2.0); BUN/CREATININE RATIO 23.33; CALCIUM SERUM 8.1 mg/dL (8.4-10.2); CREATININE SERUM 0.6 mg/dL (0.6-1.4); MAGNESIUM 1.7 mg/dL (1.6-3.0); POTASSIUM 3.3 mmol/L (3.5-5.1); PROTEIN TOTAL SERUM 5.9 g/dL (6.0-8.3)
[2017-05-15 06:49] LABS: BASOPHIL% 0.4 % (0-2.5); EOSINOPHIL# 0.4 X10e3 (0-0.7); EOSINOPHIL% 6.4 % (0.0-7.0); HEMATOCRIT 26.8 % (35.0-45.0); HEMOGLOBIN 8.8 gm/dL (12.0-16.0); LYMPHOCYTE# 1.2 X10e3 (1.0-3.5); LYMPHOCYTE% 22.5 % (17.0-45.0); MEAN CELL VOLUME 83.7 FL (83-96); MEAN CORPUSCULAR HEMOGLOBIN 27.4 PG (28-34); MEAN CORPUSCULAR HGB CONC 32.8 g/dL (30-36); MEAN PLATELET VOLUME 10.1 FL (6.5-11.5); MONOCYTE# 0.5 X10e3 (0-1.0); MONOCYTE% 8.2 % (3.0-12.0); NEUTROPHIL# 3.5 X10e3 (1.5-7.1); NEUTROPHIL% 62.5 % (40-75); PLATELET COUNT 79 X10e3 (140-420); RED BLOOD COUNT 3.21 X10e (3.90-5.30); RED CELL DISTRIBUTION WIDTH 23.3 % (11.0-15.5); WHITE BLOOD COUNT 5.5 X10e3 (4.0-10.5)
[2017-05-15 06:52] LABS: DIFF IND YES
[2017-05-15 07:36] LABS: ALBUMIN SERUM 2.5 g/dL (3.5-5.0); BILIRUBIN,TOTAL 0.9 mg/dL (0.2-2.0); CALCIUM SERUM 8.2 mg/dL (8.4-10.2); CREATININE SERUM 0.6 mg/dL (0.6-1.4); POTASSIUM 3.4 mmol/L (3.5-5.1); PROTEIN TOTAL SERUM 5.7 g/dL (6.0-8.3)
[2017-05-15 07:39] LABS: ANISOCYTOSIS MOD; PLATELET ESTIMATE DECREASED (NORMAL); POLYCHROMASIA SL
[2017-05-15 07:40] LABS: HYPOCHROMIA SL; OVALOCYTES PRESENT
[2017-05-15 15:05] LABS: HA AB IGM (HEPPAN) Nonreactive (()); HB CORE AB IGM (HEPPAN) Nonreactive (Nonreactive); HB S AG (HEPPAN) Nonreactive (Nonreactive); HEP C AB (HEPPAN) Nonreactive (Nonreactive); HEP C AB SIGNAL TO CUTOFF 0.02 ratio (<1.00)
[2017-05-16 06:20] LABS: HEMATOCRIT 27.1 % (35.0-45.0); HEMOGLOBIN 8.8 gm/dL (12.0-16.0); MEAN CELL VOLUME 84.3 FL (83-96); MEAN CORPUSCULAR HEMOGLOBIN 27.4 PG (28-34); MEAN CORPUSCULAR HGB CONC 32.5 g/dL (30-36); MEAN PLATELET VOLUME 9.9 FL (6.5-11.5); RED BLOOD COUNT 3.22 X10e (3.90-5.30); RED CELL DISTRIBUTION WIDTH 23.1 % (11.0-15.5); WHITE BLOOD COUNT 5.1 X10e3 (4.0-10.5)
[2017-05-16 06:57] LABS: BUN/CREATININE RATIO 21.66; CALCIUM SERUM 8.2 mg/dL (8.4-10.2); CREATININE SERUM 0.6 mg/dL (0.6-1.4); POTASSIUM 3.9 mmol/L (3.5-5.1)
[2017-05-17 06:21] LABS: HEMATOCRIT 27.2 % (35.0-45.0); HEMOGLOBIN 8.9 gm/dL (12.0-16.0); MEAN CELL VOLUME 84.2 FL (83-96); MEAN CORPUSCULAR HEMOGLOBIN 27.5 PG (28-34); MEAN CORPUSCULAR HGB CONC 32.7 g/dL (30-36); MEAN PLATELET VOLUME 9.8 FL (6.5-11.5); RED BLOOD COUNT 3.23 X10e (3.90-5.30); RED CELL DISTRIBUTION WIDTH 23.1 % (11.0-15.5); WHITE BLOOD COUNT 4.7 X10e3 (4.0-10.5)
[2017-05-17 06:38] LABS: CALCIUM SERUM 8.5 mg/dL (8.4-10.2); CREATININE SERUM 0.5 mg/dL (0.6-1.4); GLOM FILT RATE Estimated 100.9 mL/min (>60); POTASSIUM 3.9 mmol/L (3.5-5.1)
[2017-05-17] MEDS ORDERED: LACTULOSE20 GM/30 M PO (17:00)
[2017-05-17] MEDS ORDERED: ALDACTONE PO (17:00)
[2017-05-17] MEDS ORDERED: LASIX20 MG PO (17:00)
== END 2017-05-17 18:27 | disposition home health service (06) | DRG 871 ==
LOC: CED 12:07 → CEDOF 15:40 → C3A PCU 15:40 → CEDOF 16:06 → CED 16:06 → CICCU3 17:46 → CEDOF 17:46 → CICCU3 05-12 06:49 → C3A PCU 05-14 11:49
PROVIDERS: Emergency Medicine; Family Medicine; Internal Medicine; Internal Medicine Pulmonary Disease
PROC: 0BH17EZ Insertion of Endotracheal Airway into Trachea, Via Natural or Artificial Opening (ICD-10-PCS; principal; 2017-05-11)
PROC: 5A1945Z Respiratory Ventilation, 24-96 Consecutive Hours (ICD-10-PCS; 2017-05-11)
PROC: 0D9670Z Drainage of Stomach with Drainage Device, Via Natural or Artificial Opening (ICD-10-PCS; 2017-05-12)
DX: A41.9 Sepsis, unspecified organism (principal); J69.0 Pneumonitis due to inhalation of food and vomit; J96.01 Acute respiratory failure with hypoxia; G92 Toxic encephalopathy; E87.2 Acidosis; D69.6 Thrombocytopenia, unspecified; K65.2 Spontaneous bacterial peritonitis; K74.60 Unspecified cirrhosis of liver; I10 Essential (primary) hypertension; F32.9 Major depressive disorder, single episode, unspecified; G25.81 Restless legs syndrome; Z90.49 Acquired absence of other specified parts of digestive tract; Z90.710 Acquired absence of both cervix and uterus; Z88.0 Allergy status to penicillin; Z79.4 Long term (current) use of insulin; K72.90 Hepatic failure, unspecified without coma; E11.65 Type 2 diabetes mellitus with hyperglycemia; D64.9 Anemia, unspecified; E87.6 Hypokalemia; A08.8 Other specified intestinal infections
CPT/HCPCS: 31500; 36415; 36600; 70450; 71010; 74000; 74176; 80048; 80053; 80074; 80076; 80200; 80202; 81003; 82140; 82150; 82308; 82550; 82553; 82607; 82746; 82803; 82947; 83036; 83605; 83690; 83735; 84132; 84443; 84484; 85025; 85027; 85610; 85730; 87040; 92526; 92610; 93005; 93306; 94002; 94003; 94760; 97110; 97116; 97163; 97166; 97530; 97535; 99291; 99292; C9113; G8978-GP; G8979-GP; G8987-GO; G8988-GO; G8996-GN; G8997-GN; G8998-GN; J0330; J0696; J1650; J1815; J1940; J1956; J2250; J3260; J3370; J3475